=== PATIENT | female | born 2000 | race Caucasian/White ===

== ENCOUNTER 2019-06-08 16:19 | Inpatient (IN) | payer MEDICAID ==
[~2019-06-08] VITALS: Ht 165.1 cm; Wt 37.7 kg
[2019-06-08 17:45] VITALS: BP 93/55
--- NOTE | 2019-06-08 17:55 | NUR ---
Pt is a direct admit to Dr. Sinclair, pt wheeled in by Adm. Staff accompanied by her Stepfather. Given pt a gown, swabbed her nose,took vitals and made her comfortable. Dr. Spring was paged and will come in to assessed pt.
[2019-06-08] MEDS ORDERED: metoclopramide 5 mg/ml inj IV PRN (18:10)
[2019-06-08] MEDS ORDERED: acetaminophen 325mg tablet PO PRN (18:10)
[2019-06-08] MEDS ORDERED: mag hydrox/Alum hydrox/simeth 30ml oral suspension PO PRN (18:10)
[2019-06-08] MEDS ORDERED: ondansetron/PF 4mg/2ml inj IV PRN (18:10)
[2019-06-08] MEDS ORDERED: bisacodyl 10mg suppository rectal RC PRN (18:10)
[2019-06-08] MEDS ORDERED: diphenhydrAMINE 25mg capsule PO PRN (18:10)
[2019-06-08] MEDS ORDERED: magnesium 4gm in 100ml NS 100 ML IV PRN (18:10)
[2019-06-08] MEDS ORDERED: magnesium 2GM in 50ml NS 50 ML IV PRN (18:10)
[2019-06-08] MEDS ORDERED: magnesium Cl slow-release 64mg tablet PO PRN (18:10)
[2019-06-08] MEDS ORDERED: magnesium hydroxide 30ml (MOM) UD suspension PO PRN (18:10)
[2019-06-08] MEDS ORDERED: diphenhydrAMINE 50 mg/ml inj IV PRN (18:10)
--- NOTE | 2019-06-08 18:35 | NUR ---
Problems reprioritized. Patient report given, questions answered & plan of care reviewed with Yajaira MAGDALENO. Not much information shared with Yajaira since I just received pt and "tucked" her in.
--- NOTE | 2019-06-08 18:40 | NUR ---
Patient in room [facility]. I have received report from RASTA Jacinto and had the opportunity to ask questions and assume patient care.
[2019-06-08 19:24] LABS: ALANINE AMINOTRANSFERASE 14 U/L (12-78); ALBUMIN 4.1 G/DL (3.4-5.0); ALBUMIN/GLOBULIN RATIO 1.5 (1.1-1.5); ALKALINE PHOSPHATASE 51 IU/L (20-180); ANION GAP 7 (8-16); ASPARTATE AMINO TRANSFERASE 23 U/L (10-37); BILIRUBIN,TOTAL 0.9 MG/DL (0.1-1.0); BLOOD UREA NITROGEN 17 MG/DL (7-18); CALCIUM 8.9 MG/DL (8.5-10.1); CHLORIDE 95 MMOL/L (99-107); GLUCOSE 108 MG/DL (70-104); PHOSPHORUS 3.4 MG/DL (2.3-4.5); SODIUM 139 MMOL/L (135-145); TOTAL CARBON DIOXIDE 37.3 MMOL/L (24-32); TOTAL PROTEIN 6.9 G/DL (6.4-8.2); eGFR 71 ML/MIN
[2019-06-08 19:33] LABS: POTASSIUM 1.8 MMOL/L (3.5-5.1)
[2019-06-08 19:38] LABS: BASOPHILS # (AUTO) 0.1 X10'3 (0-0.2); BASOPHILS % (AUTO) 0.9 % (0-1); EOSINOPHILS % (AUTO) 0.5 % (0-6); HEMATOCRIT 29.6 % (35.0-45.0); HEMOGLOBIN 11.1 g/dl (12.0-16.0); LYMPHOCYTES # (AUTO) 1.4 X10'3 (1.1-4.8); LYMPHOCYTES % (AUTO) 24.5 % (21-51); MEAN CORPUSCULAR HGB CONC 37.6 g/dL (33.0-36.5); MEAN CORPUSCULAR VOLUME 87.8 FL (78-98); MEAN PLATELET VOLUME 7.6 FL (7.4-10.4); MONOCYTES # (AUTO) 0.6 X10'3 (0-0.9); MONOCYTES % (AUTO) 10.1 % (2-12); NEUTROPHILS # (AUTO) 3.6 X10'3 (1.8-7.7); PLATELET COUNT 243 X10'3 (140-440); RED BLOOD COUNT 3.37 X10'6 (4.20-5.60); RED CELL DISTRIBUTION WIDTH 14.5 % (11.5-14.5); WHITE BLOOD COUNT 5.6 X10'3 (4.5-11.0)
[2019-06-08] MEDS: potassium Cl 20 mEq SR tablet PO PRN ×2 (19:38→23:15)
[2019-06-08] MEDS: docusate sod 100mg capsule PO SCH (19:38)
[2019-06-08] MEDS: ringers solution, lacted 1,000 ML IV SCH (19:48)
[2019-06-08 20:00] VITALS: BP 86/52
[2019-06-08 20:19] LABS: CLARITY,URINE CLEAR (Clear); COLOR,URINE YELLOW (Yellow); GLUCOSE, URINE NEGATIVE (Neg); KETONES,URINE NEGATIVE (Neg); LEUKOCYTE ESTERASE ,URINE NEGATIVE (Neg); NITRITES, URINE NEGATIVE (Neg); OCCULT BLOOD,URINE TRACE-LYSED (Neg); PROTEIN,URINE NEGATIVE (Neg)
[2019-06-08 20:27] LABS: UA COLLECTION TYPE CLN CATCH MIDSTREAM
[2019-06-08 20:28] LABS: RBC,URINE 0-2 /HPF (0-2)
[2019-06-08 20:29] LABS: BACTERIA,URINE FEW /HPF (Neg); MUCUS STRANDS FEW /LPF (Neg); SQUAMOUS EPITHELIAL CELL,UR NONE SEEN /LPF (FEW)
[2019-06-08] MEDS ORDERED: temazepam 15mg capsule PO PRN (21:00)
[2019-06-08] MEDS ORDERED: NO HOME MEDS MC (21:52)
[2019-06-08] MEDS: potassium CL 10mEq/100ml bag 100 ML IV PRN (22:11)
[2019-06-09] VITALS: BP 109/61
[2019-06-09] MEDS: potassium CL 10mEq/100ml bag 100 ML IV PRN ×11 (01:36→23:23)
[2019-06-09] MEDS: potassium Cl 20 mEq SR tablet PO PRN (04:37)
[2019-06-09 05:03] LABS: POTASSIUM 2.2 MMOL/L (3.5-5.1)
--- NOTE | 2019-06-09 06:20 | NUR ---
Problems reprioritized. Patient report given, questions answered & plan of care reviewed with RASTA Quiros.
--- NOTE | 2019-06-09 06:41 | NUR ---
Patient in room [facility]. I have received report from RASTA Gates and had the opportunity to ask questions and assume patient care.
[2019-06-09] MEDS: docusate sod 100mg capsule PO SCH ×2 (07:10→19:33)
[2019-06-09 07:20] VITALS: BP 87/39
[2019-06-09] MEDS: K and/or MAG REPLACEMENT MC SCH (08:00)
[2019-06-09] MEDS: ringers solution, lacted 1,000 ML IV SCH (09:16)
[2019-06-09 10:22] LABS: ALANINE AMINOTRANSFERASE 15 U/L (12-78); ALBUMIN 3.8 G/DL (3.4-5.0); ALBUMIN/GLOBULIN RATIO 1.4 (1.1-1.5); ALKALINE PHOSPHATASE 42 IU/L (20-180); ANION GAP 3 (8-16); ASPARTATE AMINO TRANSFERASE 24 U/L (10-37); BILIRUBIN,TOTAL 0.7 MG/DL (0.1-1.0); BLOOD UREA NITROGEN 10 MG/DL (7-18); BUN/CREATININE RATIO 10.3 (6.6-38.0); CALCIUM 8.9 MG/DL (8.5-10.1); CHLORIDE 101 MMOL/L (99-107); CREATININE 0.97 MG/DL (0.40-0.90); GLUCOSE 62 MG/DL (70-104); SODIUM 142 MMOL/L (135-145); TOTAL CARBON DIOXIDE 38.3 MMOL/L (24-32); TOTAL PROTEIN 6.5 G/DL (6.4-8.2); eGFR 73 ML/MIN
[2019-06-09 10:25] LABS: POTASSIUM 2.5 MMOL/L (3.5-5.1)
[2019-06-09 11:12] VITALS: BP 92/46
--- NOTE | 2019-06-09 15:22 | NUR ---
Nutrition consult re: "anorexia/bulimia". Pt admit with intractable N/V. Pt with hx anorexia/bulimia, current BMI is 13.8 with documented wt of 83 lbs however is pt stated. Only documented wt hx is 103 lb taken 05/08/2017 using a standing scale. Diet has been advanced to regular from clear liquid, documented with 100% PO intake meeting nutrient needs. Pt with no edema or decrease in muscle strength. Pt seen at bedside with visible fat and muscle wasting meeting criteria for severe malnutrition, notified. Malnutrition education with ONS recommendations not appropriate given hx. Pt denies food allergies and was provided with written alternative write in menu to provide additional food options. Pt with food requests for dinner that were d/w dietary. Pt reports previous BM 05/25 however reports small BM today. Pt receiving routine Colace and MoM PRN last given today. Pt denies feeling of constipation at this time. RD contact information provided and pt encouraged to reach out if needed. Will continue to follow. Recommendations: 1) Continue regular diet 2) Routine bowel care 3) Wt per rx Addendum: 06/09/19 at [address] Amended: Links added.
[2019-06-09 18:00] VITALS: BP 91/54
--- NOTE | 2019-06-09 18:33 | NUR ---
Problems reprioritized. Patient report given, questions answered & plan of care reviewed with RASTA Srivastava.
--- NOTE | 2019-06-09 18:42 | NUR ---
Received report from Chula MAGDALENO pt is awake and alert in no apparent distress, call light and items of freq use within reach.
[2019-06-10 00:13] VITALS: BP 84/56
[2019-06-10] MEDS: potassium CL 10mEq/100ml bag 100 ML IV PRN (01:19)
[2019-06-10 04:04] LABS: ALANINE AMINOTRANSFERASE 14 U/L (12-78); ALBUMIN 3.3 G/DL (3.4-5.0); ALBUMIN/GLOBULIN RATIO 1.5 (1.1-1.5); ALKALINE PHOSPHATASE 38 IU/L (20-180); ANION GAP 4 (8-16); ASPARTATE AMINO TRANSFERASE 22 U/L (10-37); BILIRUBIN,TOTAL 0.4 MG/DL (0.1-1.0); BLOOD UREA NITROGEN 9 MG/DL (7-18); BUN/CREATININE RATIO 10.6 (6.6-38.0); CALCIUM 8.3 MG/DL (8.5-10.1); CHLORIDE 106 MMOL/L (99-107); CREATININE 0.85 MG/DL (0.40-0.90); GLUCOSE 84 MG/DL (70-104); PHOSPHORUS 2.4 MG/DL (2.3-4.5); POTASSIUM 3.3 MMOL/L (3.5-5.1); SODIUM 143 MMOL/L (135-145); TOTAL CARBON DIOXIDE 32.9 MMOL/L (24-32); TOTAL PROTEIN 5.5 G/DL (6.4-8.2); eGFR 85 ML/MIN
--- NOTE | 2019-06-10 06:20 | NUR ---
Problems reprioritized. Patient report given, questions answered & plan of care reviewed with wiley Goldberg.
--- NOTE | 2019-06-10 06:24 | NUR ---
Patient in room [facility]. I have received report from RASTA Srivastava and had the opportunity to ask questions and assume patient care.
[2019-06-10 06:56] VITALS: BP 89/41
[2019-06-10] MEDS: K and/or MAG REPLACEMENT MC SCH (07:11)
[2019-06-10] MEDS: docusate sod 100mg capsule PO SCH ×2 (07:48→21:34)
[2019-06-10] MEDS: potassium Cl 20 mEq SR tablet PO PRN ×3 (07:48→16:16)
[2019-06-10 10:37] LABS: BASOPHILS # (AUTO) 0.1 X10'3 (0-0.2); BASOPHILS % (AUTO) 1.2 % (0-1); EOSINOPHILS # (AUTO) 0.1 X10'3 (0-0.9); EOSINOPHILS % (AUTO) 1.1 % (0-6); HEMATOCRIT 28.8 % (35.0-45.0); HEMOGLOBIN 10.6 g/dl (12.0-16.0); LYMPHOCYTES # (AUTO) 1.2 X10'3 (1.1-4.8); LYMPHOCYTES % (AUTO) 26.4 % (21-51); MEAN CORPUSCULAR HEMOGLOBIN 33.1 PG (27.0-31.0); MEAN CORPUSCULAR HGB CONC 36.7 g/dL (33.0-36.5); MEAN CORPUSCULAR VOLUME 90.2 FL (78-98); MEAN PLATELET VOLUME 7.8 FL (7.4-10.4); MONOCYTES # (AUTO) 0.4 X10'3 (0-0.9); MONOCYTES % (AUTO) 9.2 % (2-12); NEUTROPHILS # (AUTO) 2.9 X10'3 (1.8-7.7); NEUTROPHILS % (AUTO) 62.1 % (42-75); PLATELET COUNT 204 X10'3 (140-440); RED BLOOD COUNT 3.19 X10'6 (4.20-5.60); RED CELL DISTRIBUTION WIDTH 14.8 % (11.5-14.5); WHITE BLOOD COUNT 4.6 X10'3 (4.5-11.0)
[2019-06-10 11:00] VITALS: BP 91/47
[2019-06-10 11:32] LABS: PLATELET ESTIMATE NORMAL
[2019-06-10 11:33] LABS: SPHEROCYTES 1+
--- NOTE | 2019-06-10 14:00 | NUR ---
Spoke with MD about this patient and MD expressed plan to send patient home if she can not get a psych eval done here today. states that the patient can use resources outpatient to try and find a place to go seek in patient psychiatric care. DATA CODER OPERATOR from the [facility] called to talk to the patient and for an update. Per patient it was okay to discuss her case with the DATA CODER OPERATOR. Oscar Jin, DATA CODER OPERATOR from the [facility] expressed concern for the patient and was not sure that discharge was the best option for her. She stated that the patients mother also struggles with anorexia and that environment is not the healthiest for the patient to return to. Oscar Jin, MADAN further stated that the patient really wants help and was hoping that we could assist in helping to find her some inpatient care. Primary nurse took down the phone number for the DATA CODER OPERATOR. This was discussed with Dr. Smalls who stated that the patient is medically stable and should really be discharged. Dr. Smalls stated that this patient should be able to find care after discharge as far as inpatient psych care goes. Patient is really anxious about being discharge. Behavioral Health has been called twice now trying to see if they have someone that can eval her today, they said there is someone and that they will hopefully be here soon. Dr. Smalls notified.
--- NOTE | 2019-06-10 16:59 | NUR ---
Patient had psych eval after, primary nurse spoke with Dr. Smalls who stated that she wanted to discharge the patient. This was discussed with the patient, patient stated that she feels very unsafe going back home. Primary nurse reached out to the mental health case manager to see if there were any other options for this patient. Renetta in case management stated that she would really like the opportunity to review the patients chart tomorrow. Primary nurse paged Dr. Smalls and asked if the patient could stay one more day so that we can have an opportunity to work with the mental health case manager. Dr. Smalls agreed and asked for the nurse to prepare the patient for probable discharge tomorrow.
--- NOTE | 2019-06-10 18:12 | NUR ---
Problems reprioritized. Patient report given, questions answered & plan of care reviewed with RASTA Cisneros.
--- NOTE | 2019-06-10 19:00 | NUR ---
Patient in room [facility]. I have received report from Coco MAGDALENO and had the opportunity to ask questions and assume patient care. Addendum: 06/11/19 at 0513 by Amelia Lozano RN Amended: Links added.
[2019-06-10] MEDS ORDERED: mirtazapine 15mg tablet PO SCH (21:00)
[2019-06-11] VITALS: BP 90/50
--- NOTE | 2019-06-11 06:00 | NUR ---
Problems reprioritized. Patient report given, questions answered & plan of care reviewed with Coco MAGDALENO. Addendum: 06/11/19 at 0643 by Amelia Lozano RN Amended: Links added.
[2019-06-11 06:25] LABS: ALANINE AMINOTRANSFERASE 15 U/L (12-78); ALBUMIN 3.2 G/DL (3.4-5.0); ALBUMIN/GLOBULIN RATIO 1.5 (1.1-1.5); ALKALINE PHOSPHATASE 36 IU/L (20-180); ANION GAP 7 (8-16); ASPARTATE AMINO TRANSFERASE 20 U/L (10-37); BILIRUBIN,TOTAL 0.4 MG/DL (0.1-1.0); BLOOD UREA NITROGEN 6 MG/DL (7-18); BUN/CREATININE RATIO 7.1 (6.6-38.0); CALCIUM 8.2 MG/DL (8.5-10.1); CHLORIDE 109 MMOL/L (99-107); CREATININE 0.84 MG/DL (0.40-0.90); GLUCOSE 79 MG/DL (70-104); MAGNESIUM 1.9 MG/DL (1.5-2.4); PHOSPHORUS 2.6 MG/DL (2.3-4.5); POTASSIUM 3.2 MMOL/L (3.5-5.1); SODIUM 146 MMOL/L (135-145); TOTAL PROTEIN 5.4 G/DL (6.4-8.2); eGFR 86 ML/MIN
--- NOTE | 2019-06-11 06:25 | NUR ---
Patient in room [facility]. I have received report from RASTA Cisneros and had the opportunity to ask questions and assume patient care.
[2019-06-11 07:13] VITALS: BP 83/38
[2019-06-11] MEDS: K and/or MAG REPLACEMENT MC SCH (07:27)
[2019-06-11] MEDS: potassium Cl 20 mEq SR tablet PO PRN (07:29)
[2019-06-11] MEDS: docusate sod 100mg capsule PO SCH (07:29)
[2019-06-11] MEDS ORDERED: ESCITALOPRAM OXALATE 5 MG TABLET PO SCH (08:00)
[2019-06-11] MEDS ORDERED: MIRT15TA8 PO (10:15)
[2019-06-11] MEDS ORDERED: ESCI5TAB PO (10:15)
[2019-06-11] MEDS ORDERED: POTA20TA10 PO (10:16)
[2019-06-11 11:00] VITALS: BP 96/55
--- NOTE | 2019-06-11 13:15 | NUR ---
Patient discharged home and taken from unit via wheelchair with x1 staff. Patient alert, oriented, and in no apparent distress at time of discharge. Patient was able to meet with Beater Room Helper from Behavioral Health and our [employer] and was able to get some resources to find counseling. Patient was encouraged to follow up with PCP as well as the mental health workers that she has seen in the past. Patient was sent with new medication prescription to take into the [facility] tomorrow. Patient PIV removed with cannula intact and and tele monitor removed with cannula intact. Patient was given discharge instructions and there was discussed with the patient. We also discussed coping mechanisms that can work for her and some stress relieving activities to try. Patient stated that she is going to try. Patient was also encouraged to seek help immediately if she starts having thoughts of suicide. patient stated an understanding of all of the instructions.
== END 2019-06-11 13:15 | disposition home or self-care (01) | DRG 425 ==
LOC: SUR 3N 17:23
PROVIDERS: ADMIT Family Medicine; ATTEND Internal Medicine
DX: E87.6 Hypokalemia (principal); E46 Unspecified protein-calorie malnutrition; F50.00 Anorexia nervosa, unspecified; K59.00 Constipation, unspecified; F41.9 Anxiety disorder, unspecified; F33.1 Major depressive disorder, recurrent, moderate; F50.2 Bulimia nervosa; Z79.899 Other long term (current) drug therapy; Z68.1 Body mass index [BMI] 19.9 or less, adult
CPT/HCPCS: 36415; 80053; 81001; 83735; 84100; 84132; 84443; 85025; 87081; G0378; J3480; J7120

== ENCOUNTER 2019-06-29 11:40 | Inpatient (IN) | payer MEDICAID ==
[~2019-06-29] VITALS: Ht 165.1 cm; Wt 38.7 kg
[~2019-06-29 11:40] MED LIST: ESCI5TAB PO; MIRT15TA8 PO; POTA20TA10 PO
--- NOTE | 2019-06-29 12:15 | NUR ---
Patient's father arrived and at bedside. Patient sitting up in bed talking on phone.
[2019-06-29] MEDS ORDERED: normal saline 1000ML IV soln IVB ONE (12:30)
[2019-06-29 13:07] LABS: BASOPHILS % (AUTO) 0.9 % (0-1); EOSINOPHILS % (AUTO) 0.6 % (0-6); HEMATOCRIT 28.4 % (35.0-45.0); HEMOGLOBIN 10.4 g/dl (12.0-16.0); LYMPHOCYTES # (AUTO) 1.1 X10'3 (1.1-4.8); LYMPHOCYTES % (AUTO) 20.1 % (21-51); MEAN CORPUSCULAR HEMOGLOBIN 33.1 PG (27.0-31.0); MEAN CORPUSCULAR HGB CONC 36.7 g/dL (33.0-36.5); MEAN CORPUSCULAR VOLUME 90.3 FL (78-98); MEAN PLATELET VOLUME 6.9 FL (7.4-10.4); MONOCYTES # (AUTO) 0.5 X10'3 (0-0.9); NEUTROPHILS # (AUTO) 3.8 X10'3 (1.8-7.7); NEUTROPHILS % (AUTO) 69.4 % (42-75); PLATELET COUNT 204 X10'3 (140-440); RED BLOOD COUNT 3.15 X10'6 (4.20-5.60); RED CELL DISTRIBUTION WIDTH 13.7 % (11.5-14.5); WHITE BLOOD COUNT 5.4 X10'3 (4.5-11.0)
[2019-06-29 13:30] LABS: ALANINE AMINOTRANSFERASE 13 U/L (12-78); ALBUMIN 3.8 G/DL (3.4-5.0); ALBUMIN/GLOBULIN RATIO 1.4 (1.1-1.5); ALKALINE PHOSPHATASE 50 IU/L (20-180); ANION GAP 7 (8-16); ASPARTATE AMINO TRANSFERASE 22 U/L (10-37); BLOOD UREA NITROGEN 16 MG/DL (7-18); BUN/CREATININE RATIO 16.3 (6.6-38.0); CALCIUM 8.5 MG/DL (8.5-10.1); CHLORIDE 103 MMOL/L (99-107); CREATININE 0.98 MG/DL (0.40-0.90); GLUCOSE 117 MG/DL (70-104); LIPASE 164 U/L (73-393); MAGNESIUM 1.9 MG/DL (1.5-2.4); PHOSPHORUS 2.5 MG/DL (2.3-4.5); SODIUM 143 MMOL/L (135-145); TOTAL CARBON DIOXIDE 33.5 MMOL/L (24-32); TOTAL PROTEIN 6.6 G/DL (6.4-8.2); eGFR 72 ML/MIN
[2019-06-29 13:32] LABS: POTASSIUM 2.4 MMOL/L (3.5-5.1)
--- NOTE | 2019-06-29 13:34 | NUR ---
Patient resting in bed with lights dimmed. Father at bedside. Patient A&OX4. Patient drank juice box x 1. Attempting to eat jello and drink another juice box. Patient on monitor technician.
[2019-06-29 13:43] LABS: ETHANOL < 0.010 GM/DL (0.0-0.010)
[2019-06-29] MEDS ORDERED: potassium Cl 20 mEq SR tablet PO STA ×2 (13:43→13:54)
--- NOTE | 2019-06-29 14:07 | NUR ---
verified potassium PO order of 80mEq with Dr. Nascimento and pharmacy in ED.
[2019-06-29] MEDS: potassium 20mEq/D5LR 1,000 ML IV SCH ×2 (14:21→23:00)
[2019-06-29] MEDS ORDERED: diphenhydrAMINE 25mg capsule PO PRN (14:30)
[2019-06-29] MEDS ORDERED: potassium Cl 20 mEq SR tablet PO PRN (14:30)
[2019-06-29] MEDS ORDERED: metoclopramide 5 mg/ml inj IV PRN (14:30)
[2019-06-29] MEDS ORDERED: acetaminophen 650mg rectal suppository RC PRN (14:30)
[2019-06-29] MEDS: K and/or MAG REPLACEMENT MC SCH (14:30)
[2019-06-29] MEDS ORDERED: magnesium hydroxide 30ml (MOM) UD suspension PO PRN (14:30)
[2019-06-29] MEDS: dextrose 5%-normal saline 1,000 ML IV SCH ×2 (14:30→22:30)
[2019-06-29] MEDS ORDERED: magnesium 2GM in 50ml NS 50 ML IV PRN (14:30)
[2019-06-29] MEDS ORDERED: bisacodyl 10mg suppository rectal RC PRN (14:30)
[2019-06-29] MEDS ORDERED: magnesium Cl slow-release 64mg tablet PO PRN (14:30)
[2019-06-29] MEDS ORDERED: mag hydrox/Alum hydrox/simeth 30ml oral suspension PO PRN (14:30)
[2019-06-29] MEDS ORDERED: magnesium 4gm in 100ml NS 100 ML IV PRN (14:30)
[2019-06-29] MEDS ORDERED: acetaminophen 325mg tablet PO PRN ×2 (14:30)
[2019-06-29] MEDS ORDERED: ondansetron/PF 4mg/2ml inj IV PRN (14:30)
[2019-06-29] MEDS ORDERED: potassium CL 10mEq/100ml bag 100 ML IV PRN ×2 (14:30)
[2019-06-29 15:01] LABS: HEMOGLOBIN A1C 4.3 % (4.5-6.2)
[2019-06-29] MEDS ORDERED: MIRT15TA PO (15:08)
[2019-06-29] MEDS ORDERED: POTA20TA19 PO (15:08)
[2019-06-29] MEDS ORDERED: ESCI5TAB12 PO (15:08)
--- NOTE | 2019-06-29 15:13 | NUR ---
Patient drinking juice box #3.
--- NOTE | 2019-06-29 15:55 | NUR ---
Patient ambulated to restroom with steady gait. Urine sample collected and sent to lab.
[2019-06-29 16:06] LABS: URINE HCG NEGATIVE (NEG)
[2019-06-29 16:13] LABS: CLARITY,URINE CLEAR (Clear); COLOR,URINE YELLOW (Yellow); GLUCOSE, URINE 250 mg/dl (Neg); KETONES,URINE NEGATIVE (Neg); LEUKOCYTE ESTERASE ,URINE TRACE (Neg); NITRITES, URINE NEGATIVE (Neg); OCCULT BLOOD,URINE NEGATIVE (Neg); PROTEIN,URINE NEGATIVE (Neg); URINE AMPHETAMINE SCREEN NEGATIVE (Neg); URINE BARBITUATE SCREEN NEGATIVE (Neg); URINE BENZODIAZEPINES SCREEN NEGATIVE (Neg); URINE CANNABINOID SCREEN NEGATIVE (Neg); URINE COCAINE SCREEN NEGATIVE (Neg); URINE METHADONE SCREEN NEGATIVE (Neg); URINE OPIATE SCREEN NEGATIVE (Neg); URINE PHENCYCLIDINE SCREEN NEGATIVE (Neg); UROBILINOGEN,URINE 0.2 E.U/dL (0.2-1.0)
[2019-06-29 16:15] LABS: UA COLLECTION TYPE CLN CATCH MIDSTREAM
--- NOTE | 2019-06-29 16:20 | NUR ---
Patient in room ED 15. I have received report from Rolf MAGDALENO and had the opportunity to ask questions and assume patient care.
[2019-06-29 16:24] LABS: MUCUS STRANDS MODERATE /LPF (Neg); SQUAMOUS EPITHELIAL CELL,UR MODERATE /LPF (FEW)
[2019-06-29 16:25] LABS: BACTERIA,URINE 2+ /HPF (Neg); RBC,URINE 0-2 /HPF (0-2); TRANSITIONAL EPI CELLS,URINE FEW /HPF; WBC,URINE 0-4 /HPF (0-4)
[2019-06-29 16:31] VITALS: BP 93/36
--- NOTE | 2019-06-29 17:48 | NUR ---
B/P 93/[address] Pelayo pagezuhair, fluids increased, ac/hs accuchecks ordered. will continue to monitor
[2019-06-29] MEDS: potassium Cl 20 mEq SR tablet PO PRN ×2 (17:53→22:59)
[2019-06-29] MEDS ORDERED: FLU VACC QS2019-20 36MOS UP/PF 60 MCG/0.5 ML SYRINGE IMVAC ONE (17:55)
[2019-06-29 18:00] VITALS: BP 95/64
--- NOTE | 2019-06-29 18:11 | NUR ---
Problems reprioritized. Patient report given, questions answered & plan of care reviewed with MARKY MAGDALENO.
--- NOTE | 2019-06-29 18:32 | NUR ---
Patient in room [facility]. I have received report from RASTA Schroeder and had the opportunity to ask questions and assume patient care. Addendum: 06/29/19 at 1833 by Martha Bryant RN Amended: Links added.
[2019-06-29] MEDS: heparin, porcine 5000 units/ml vial SQ SCH (20:44)
[2019-06-29] MEDS: mirtazapine 15mg tablet PO SCH (20:56)
[2019-06-30] VITALS: BP 97/68
[2019-06-30 05:31] LABS: ALANINE AMINOTRANSFERASE 14 U/L (12-78); ALBUMIN 3.1 G/DL (3.4-5.0); ALBUMIN/GLOBULIN RATIO 1.3 (1.1-1.5); ALKALINE PHOSPHATASE 41 IU/L (20-180); ANION GAP 2 (8-16); ASPARTATE AMINO TRANSFERASE 20 U/L (10-37); BILIRUBIN,TOTAL 0.6 MG/DL (0.1-1.0); BLOOD UREA NITROGEN 9 MG/DL (7-18); BUN/CREATININE RATIO 10.6 (6.6-38.0); CALCIUM 8.5 MG/DL (8.5-10.1); CHLORIDE 110 MMOL/L (99-107); CREATININE 0.85 MG/DL (0.40-0.90); GLUCOSE 124 MG/DL (70-104); MAGNESIUM 1.7 MG/DL (1.5-2.4); PHOSPHORUS 1.7 MG/DL (2.3-4.5); POTASSIUM 4.6 MMOL/L (3.5-5.1); SODIUM 143 MMOL/L (135-145); TOTAL CARBON DIOXIDE 30.8 MMOL/L (24-32); TOTAL PROTEIN 5.5 G/DL (6.4-8.2); eGFR 85 ML/MIN
[2019-06-30 06:13] LABS: BASOPHILS % (AUTO) 0.9 % (0-1); EOSINOPHILS # (AUTO) 0.1 X10'3 (0-0.9); EOSINOPHILS % (AUTO) 1.7 % (0-6); HEMATOCRIT 26.3 % (35.0-45.0); HEMOGLOBIN 9.7 g/dl (12.0-16.0); LYMPHOCYTES # (AUTO) 1.8 X10'3 (1.1-4.8); LYMPHOCYTES % (AUTO) 36.9 % (21-51); MEAN CORPUSCULAR HEMOGLOBIN 33.2 PG (27.0-31.0); MEAN CORPUSCULAR HGB CONC 36.8 g/dL (33.0-36.5); MEAN CORPUSCULAR VOLUME 90.3 FL (78-98); MEAN PLATELET VOLUME 7.6 FL (7.4-10.4); MONOCYTES # (AUTO) 0.4 X10'3 (0-0.9); MONOCYTES % (AUTO) 8.2 % (2-12); NEUTROPHILS # (AUTO) 2.5 X10'3 (1.8-7.7); NEUTROPHILS % (AUTO) 52.3 % (42-75); PLATELET COUNT 188 X10'3 (140-440); RED BLOOD COUNT 2.91 X10'6 (4.20-5.60); RED CELL DISTRIBUTION WIDTH 13.9 % (11.5-14.5); WHITE BLOOD COUNT 4.9 X10'3 (4.5-11.0)
[2019-06-30] MEDS: dextrose 5%-normal saline 1,000 ML IV SCH (06:30)
--- NOTE | 2019-06-30 06:34 | NUR ---
Problems reprioritized. Patient report given, questions answered & plan of care reviewed with RASTA Lawrence's. Addendum: 06/30/19 at 0634 by Martha Bryant RN Amended: Links added.
[2019-06-30 06:39] LABS: PLATELET ESTIMATE NORMAL; POLYCHROMASIA FEW
[2019-06-30 06:40] LABS: SPHEROCYTES 1+
[2019-06-30] MEDS: potassium 20mEq/D5LR 1,000 ML IV SCH ×3 (06:49→22:53)
[2019-06-30 07:01] VITALS: BP 92/45
[2019-06-30] MEDS: K and/or MAG REPLACEMENT MC SCH (08:00)
[2019-06-30] MEDS: heparin, porcine 5000 units/ml vial SQ SCH ×2 (09:06→20:15)
[2019-06-30] MEDS: ESCITALOPRAM OXALATE 5 MG TABLET PO SCH (09:07)
[2019-06-30 11:00] VITALS: BP 96/48
--- NOTE | 2019-06-30 11:24 | NUR ---
Per Dr Pelayo please call Behavioral health and see if Dr Hernandez is going to come and evaluate patient. Called Behavioral health spoke to Josselyn she will let Lia the PA know.
--- NOTE | 2019-06-30 11:45 | NUR ---
Brenda MAGDALENO, spoke with Gretchen the dietitian and she will come up to evaluate the patient, and she suggested enlive with meals. Order placed.
[2019-06-30] MEDS: lactose-reduced food (Ensure Enlive) - 237ml bottle PO SCH ×2 (13:00→19:00)
--- NOTE | 2019-06-30 14:00 | NUR ---
Received a call from patients Nurse practitioner Jenniffer Jin from [facility] phone numbercell) [phone]. Jenniffer is very concerned about patient going back home she states " patients home life is toxic, her mother has severe anorexia and when the patient goes home her mother and her argue and patient becomes very depressed." Also, Jenniffer is very worried that the patients condition is going to deteriorate and she will . Jenniffer states they are trying to get the patient into [facility] eating disorder clinic in [place]. Patients insurance [facility] has approved Medical portion and they have submitted to the [facility] to cover the psychiatric portion but have not gotten any feedback yet. Also, the patient is so there is a possibility they will pay the psychiatric portion, Sandy Carranza from [facility] is working on approval . Jenniffer would like to see what help we can give for the patient or if patient could be placed in our patient Behavioral Health facility. I have a call out to Dr Pelayo to inform him of her concerns. I also have a social service consult in and Lora states she would be by this afternoon.
--- NOTE | 2019-06-30 15:08 | NUR ---
Nutrition consult re: "anorexia/bulimia". Pt recently admitted for intractable N/V with hx anorexia nervosa/bulimia and seen by MUMTAZ 06/09/19. Only scaled wt hx is 103 lbs taken 05/08/2017 using a standing scale, pt currently 79 lbs using standing scale. This is non-severe wt loss of 28% in two years however pt currently 63% IBW and likely with periods of wt loss with poor nutrient intake/absorption r/t eating disorder. Pt with visible fat and muscle wasting meeting criteria for malnutrition, MD notified. Pt would benefit from an outpatient eating disorder facility given positive hx of anorexia nervosa/bulimia. Pt on a regular diet documented to have refused the first meal however with 75-100% PO intake the following meals meeting nutrient needs, no documentation of purging during admission. RN ordered ONS per MD, RD recommended Ensure Enlive to provide optimal kcal and protein. Pt seen at bedside requests vanilla flavor, d/w dietary. Pt with no food preferences or requests at this time. Per Dietary pt is filling out menu appropriately. Pt provided with alternative write in menu to provide additional food options and RD contact information. LB 06/30. Will continue to follow. Recommendations: 1) Continue regular diet 2) Vanilla Ensure Enlive TID per MD 3) [place] food preferences; Encourage PO intake 4) Routine bowel care 5) Wt per rx Addendum: 06/30/19 at [address] Amended: Links added.
--- NOTE | 2019-06-30 15:53 | NUR ---
Spoke to Josselyn with behavioral health again she stated that Tian Meza has seen the patient in the past and he will come and see her in a bit.
--- NOTE | 2019-06-30 17:31 | NUR ---
Tian Meza evaluating patient Dr Pelayo aware. I advised Dr Pelayo that Quilting Machine Operator has left for the day. Dr Pelayo states patient is medically clear but that patient is a danger to self and that she should be evaluated for 5150. Tian Meza aware and stated that we can call downstairs to the ER and speak w/ Viet with [facility]. Per Viet with [facility] patient would need to have a 1799 placed on her and then we would have to fax over medical records. Spoke to Lynn polanco/ [facility] office and we need the fax to include: labs, the 1799, nursing notes, progress notes, face sheet, medical clearance, H&P, tox screen and medical diagnosis. Fax the above to [facility] office for [facility] at [phone] fax, office number is [phone].
[2019-06-30 18:00] VITALS: BP 104/64
--- NOTE | 2019-06-30 18:26 | NUR ---
Problems reprioritized. Patient report given, questions answered & plan of care reviewed with ZULEYMA MAGDALENO .
--- NOTE | 2019-06-30 18:27 | NUR ---
Patient in room [facility] 347. I have received report from RASTA Lawrence's and had the opportunity to ask questions and assume patient care. Addendum: 06/30/19 at 1827 by Martha Bryant RN Amended: Links added.
[2019-06-30] MEDS: mirtazapine 15mg tablet PO SCH (20:15)
[2019-06-30] MEDS ORDERED: dextrose 50%-water 50ml dispensing syringe IV PRN (22:20)
[2019-06-30] MEDS ORDERED: glucagon, human recombinant 1mg kit SUBCUT PRN (22:20)
[2019-06-30] MEDS: dextrose ORAL solution 15 GM/59 ML bottle PO PRN (22:53)
[2019-06-30] MEDS: Melatonin 3mg tablet PO PRN (22:53)
--- NOTE | 2019-06-30 23:21 | NUR ---
patient had a blood sugar of 62mg/dl, rechecked after an hour and it was 61mg/dl, asked patient about making herself throw up and she admitted that shes been doing it and could not help it. patient admitted that food makes her uncomfortable so she has to throw up. Informed patient and educate about getting her blood glucose up and to keep food down. Notified Dr. yuan and ordered hypoglycemia protocol, dex4 was given and will re check blood sugar. pt has a sitter order.
[2019-07-01 00:50] VITALS: BP 93/55
[2019-07-01 05:39] LABS: ALANINE AMINOTRANSFERASE 46 U/L (12-78); ALBUMIN 2.9 G/DL (3.4-5.0); ALBUMIN/GLOBULIN RATIO 1.3 (1.1-1.5); ANION GAP 4 (8-16); ASPARTATE AMINO TRANSFERASE 54 U/L (10-37); BILIRUBIN,TOTAL 0.4 MG/DL (0.1-1.0); BLOOD UREA NITROGEN 3 MG/DL (7-18); BUN/CREATININE RATIO 4.1 (6.6-38.0); CALCIUM 7.9 MG/DL (8.5-10.1); CHLORIDE 110 MMOL/L (99-107); CREATININE 0.74 MG/DL (0.40-0.90); GLUCOSE 83 MG/DL (70-104); MAGNESIUM 1.5 MG/DL (1.5-2.4); PHOSPHORUS 2.5 MG/DL (2.3-4.5); POTASSIUM 4.1 MMOL/L (3.5-5.1); SODIUM 143 MMOL/L (135-145); TOTAL CARBON DIOXIDE 28.7 MMOL/L (24-32); TOTAL PROTEIN 5.1 G/DL (6.4-8.2); eGFR > 90 ML/MIN
[2019-07-01 05:40] LABS: ALKALINE PHOSPHATASE 40 IU/L (20-180)
[2019-07-01 06:16] LABS: BASOPHILS % (AUTO) 1.3 % (0-1); EOSINOPHILS # (AUTO) 0.1 X10'3 (0-0.9); EOSINOPHILS % (AUTO) 2.4 % (0-6); HEMATOCRIT 25.3 % (35.0-45.0); HEMOGLOBIN 9.3 g/dl (12.0-16.0); LYMPHOCYTES # (AUTO) 1.8 X10'3 (1.1-4.8); LYMPHOCYTES % (AUTO) 45.9 % (21-51); MEAN CORPUSCULAR HEMOGLOBIN 33.2 PG (27.0-31.0); MEAN CORPUSCULAR HGB CONC 36.7 g/dL (33.0-36.5); MEAN CORPUSCULAR VOLUME 90.6 FL (78-98); MEAN PLATELET VOLUME 7.8 FL (7.4-10.4); MONOCYTES # (AUTO) 0.3 X10'3 (0-0.9); MONOCYTES % (AUTO) 8.2 % (2-12); NEUTROPHILS # (AUTO) 1.6 X10'3 (1.8-7.7); NEUTROPHILS % (AUTO) 42.2 % (42-75); PLATELET COUNT 189 X10'3 (140-440); RED BLOOD COUNT 2.79 X10'6 (4.20-5.60); RED CELL DISTRIBUTION WIDTH 13.9 % (11.5-14.5); WHITE BLOOD COUNT 3.9 X10'3 (4.5-11.0)
--- NOTE | 2019-07-01 06:29 | NUR ---
Patient in room [facility] 347. I have received report from Charline Blum RN and had the opportunity to ask questions and assume patient care.
--- NOTE | 2019-07-01 06:30 | NUR ---
Problems reprioritized. Patient report given, questions answered & plan of care reviewed with RASTA Richter.
[2019-07-01] MEDS: potassium 20mEq/D5LR 1,000 ML IV SCH ×3 (07:14→22:24)
[2019-07-01] MEDS: dextrose ORAL solution 15 GM/59 ML bottle PO PRN ×2 (07:15→21:59)
--- NOTE | 2019-07-01 07:15 | NUR ---
Patient's blood sugar was 55mg/dl, patient is alert, oriented, stated feeling weak. Glucose shot 15gm given to patient as indicated
[2019-07-01 07:40] VITALS: BP 93/50
[2019-07-01 07:45] LABS: PLATELET ESTIMATE NORMAL
[2019-07-01 07:46] LABS: SPHEROCYTES 1+
[2019-07-01] MEDS: K and/or MAG REPLACEMENT MC SCH (08:00)
[2019-07-01] MEDS: lactose-reduced food (Ensure Enlive) - 237ml bottle PO SCH ×3 (08:00→18:46)
--- NOTE | 2019-07-01 08:58 | NUR ---
Received a phone call from Cherelle, a worker at [facility]. She asked if there is a note from Tian Meza, I told her that per hospitalist progress note, Tian DC had seen the patient already and determined that patient is a danger to herself and that currently patient is on 179 status. Cherelle said that she will let the clinician at [facility] know about this and to see the patient today for eval. Charge nurse Tita notified about this.
[2019-07-01] MEDS: ESCITALOPRAM OXALATE 5 MG TABLET PO SCH (09:36)
[2019-07-01] MEDS: heparin, porcine 5000 units/ml vial SQ SCH ×2 (09:37→19:51)
[2019-07-01 11:25] VITALS: BP 98/47
--- NOTE | 2019-07-01 11:50 | NUR ---
Patient visited by her aunbeena Ovalle. Patient gave me verbal permission to talk to her auntie Yamile about her condition. Yamile (auntie) expressed concern about patient going back home because the patient's mom also have the same condition and that the patient is not safe to go back home. Yamile states "I will be willing to take her home with me at [place] if needed!" I discussed this with the patient. I told the patient that her auntie was so worried about her safety at home. Patient states "I am okay with living with her(referring to her aunt Yamile) but I have not decided yet if I am going to live with her or with my grandparents!" Patient stated that her grandparents live in [place]. Charge nurse Tita notified about this. Addendum: 07/01/19 at 1159 by Neelam Faust RN Left a message to Lora, the cooler worker that I made a note about this patient for her to review.
--- NOTE | 2019-07-01 13:28 | NUR ---
[facility] Mental [facility] worker Gracia at the bedside talking to the patient at the moment Addendum: 07/01/19 at 1406 by Neelam Faust RN Gracia ([facility] worker) said that patient suicidal and was aware that patient is unsafe to go back home with her mom. Gracia said she will contact the patient's grandparents Addendum: 07/01/19 at 1407 by Neelam Faust RN Correction to the note: Gracia ([facility] worker) said that patient is NOT suicidal and was aware that patient is unsafe to go back home with her mom. Gracia said she will contact the patient's grandparents
--- NOTE | 2019-07-01 15:50 | NUR ---
Patient in room [facility] 347. I have received report from RASTA Diallo and had the opportunity to ask questions and assume patient care.
--- NOTE | 2019-07-01 15:53 | NUR ---
Report given to Ann RN to take over the care
[2019-07-01 18:00] VITALS: BP 100/62
--- NOTE | 2019-07-01 18:10 | NUR ---
Problems reprioritized. Patient report given, questions answered & plan of care reviewed with RASTA Gonsalez.
--- NOTE | 2019-07-01 18:35 | NUR ---
Patient in room [facility] 347. I have received report from Jayden MAGDALENO and had the opportunity to ask questions and assume patient care. patient is bed resting and shows no sign of distress.
[2019-07-01] MEDS: mirtazapine 15mg tablet PO SCH (20:58)
[2019-07-01] MEDS: amox tr/potassium clavulanate 500mg/125mg TAB PO SCH (20:58)
[2019-07-01] MEDS: Melatonin 3mg tablet PO PRN (21:00)
[2019-07-02 00:54] VITALS: BP 102/46
[2019-07-02] MEDS: potassium 20mEq/D5LR 1,000 ML IV SCH ×3 (05:25→23:00)
--- NOTE | 2019-07-02 06:09 | NUR ---
Problems reprioritized. Patient report given, questions answered & plan of care reviewed with Ophelia RN. Patient slept well with no sign of distress and she denied having pain.
--- NOTE | 2019-07-02 06:32 | NUR ---
Patient in room [facility] 347. I have received report from Sunshine MAGDALENO and had the opportunity to ask questions and assume patient care.
[2019-07-02 07:19] LABS: BASOPHILS # (AUTO) 0.1 X10'3 (0-0.2); BASOPHILS % (AUTO) 1.4 % (0-1); EOSINOPHILS # (AUTO) 0.1 X10'3 (0-0.9); HEMATOCRIT 25.6 % (35.0-45.0); HEMOGLOBIN 9.4 g/dl (12.0-16.0); LYMPHOCYTES # (AUTO) 1.3 X10'3 (1.1-4.8); LYMPHOCYTES % (AUTO) 35.2 % (21-51); MEAN CORPUSCULAR HEMOGLOBIN 33.7 PG (27.0-31.0); MEAN CORPUSCULAR HGB CONC 36.8 g/dL (33.0-36.5); MEAN CORPUSCULAR VOLUME 91.4 FL (78-98); MEAN PLATELET VOLUME 7.3 FL (7.4-10.4); MONOCYTES # (AUTO) 0.3 X10'3 (0-0.9); MONOCYTES % (AUTO) 9.6 % (2-12); NEUTROPHILS # (AUTO) 1.8 X10'3 (1.8-7.7); NEUTROPHILS % (AUTO) 50.8 % (42-75); PLATELET COUNT 186 X10'3 (140-440); RED CELL DISTRIBUTION WIDTH 13.4 % (11.5-14.5); WHITE BLOOD COUNT 3.6 X10'3 (4.5-11.0)
[2019-07-02 07:25] LABS: ALANINE AMINOTRANSFERASE 81 U/L (12-78); ALBUMIN 2.7 G/DL (3.4-5.0); ALBUMIN/GLOBULIN RATIO 1.2 (1.1-1.5); ALKALINE PHOSPHATASE 43 IU/L (20-180); ANION GAP 4 (8-16); ASPARTATE AMINO TRANSFERASE 77 U/L (10-37); BILIRUBIN,TOTAL 0.3 MG/DL (0.1-1.0); BLOOD UREA NITROGEN 2 MG/DL (7-18); CALCIUM 7.9 MG/DL (8.5-10.1); CHLORIDE 110 MMOL/L (99-107); GLUCOSE 78 MG/DL (70-104); MAGNESIUM 1.4 MG/DL (1.5-2.4); PHOSPHORUS 1.8 MG/DL (2.3-4.5); POTASSIUM 4.2 MMOL/L (3.5-5.1); SODIUM 143 MMOL/L (135-145); TOTAL CARBON DIOXIDE 28.7 MMOL/L (24-32); TOTAL PROTEIN 4.9 G/DL (6.4-8.2)
[2019-07-02 07:34] LABS: BUN/CREATININE RATIO 2.7 (6.6-38.0); CREATININE 0.73 MG/DL (0.40-0.90); eGFR > 90 ML/MIN
[2019-07-02 07:38] LABS: PLATELET ESTIMATE NORMAL
[2019-07-02 07:39] LABS: SPHEROCYTES 1+
[2019-07-02 08:00] VITALS: BP 92/41
[2019-07-02] MEDS: K and/or MAG REPLACEMENT MC SCH (08:00)
[2019-07-02] MEDS: amox tr/potassium clavulanate 500mg/125mg TAB PO SCH ×2 (08:15→17:27)
[2019-07-02] MEDS: heparin, porcine 5000 units/ml vial SQ SCH ×2 (08:15→20:40)
[2019-07-02] MEDS: ESCITALOPRAM OXALATE 5 MG TABLET PO SCH (08:15)
[2019-07-02] MEDS: lactose-reduced food (Ensure Enlive) - 237ml bottle PO SCH ×3 (08:15→18:00)
--- NOTE | 2019-07-02 11:28 | NUR ---
Spoke to pt about eating constantly and if she was holding her food down or throwing it up. Pt admitted to have thrown up yesterday but not today. Pt was very embarrassed because she says she cannot help it and food just comes up undigested when she eats it. I asked her to let me know if she vomits and she said she would.
[2019-07-02 11:34] VITALS: BP 100/51
[2019-07-02] MEDS: dextrose ORAL solution 15 GM/59 ML bottle PO PRN ×6 (13:18→20:19)
[2019-07-02] MEDS: dextrose 50%-water 50ml dispensing syringe IV PRN (15:27)
--- NOTE | 2019-07-02 15:30 | NUR ---
Patient's blood sugar keeps dropping. PO dextrose given and patient continues to vomit afterwards. Patient is unable to hold down PO replacement. IV dextrose used to keep blood glucose levels increased. aware.
--- NOTE | 2019-07-02 15:43 | NUR ---
Called Dr Garcia regarding Pt's glucose levels dropping to the 50's-60's. Notified Dr about giving pt IV glucose due to the fact that PT continues to vomit therefore dropping her glucose levels despite the fact that pt has D5K20 running at 125ml per hr. added a D10 drip at 30ml/hr and to reduce D5 to 100/Hr. Pt feels weak and tired no other symptoms reported by pt.
[2019-07-02] MEDS: sodium chloride inj. 154 MEQ in Dextrose 10%-water IV solution 961.5 ML IV SCH (16:18)
--- NOTE | 2019-07-02 17:15 | NUR ---
Pt glucose level at this time was 62, D5K20 & D10 drip infusing at this time. Glucose shot given, 15 min later level increased to 79. Pt will have dinner in 15 min. Pt continuous to eat and vomit, glucose seem to drop every time she vomits . Dr aware of the issue.
--- NOTE | 2019-07-02 18:20 | NUR ---
Problems reprioritized. Patient report given, questions answered & plan of care reviewed with Charline Martinez RN.
[2019-07-02 20:00] VITALS: BP 108/56
--- NOTE | 2019-07-02 20:01 | NUR ---
Patient feeling shaky. BG 49. Gave dex4 x 4. Will recheck in 15 min. Pt also requested 2 orange juices.
[2019-07-02] MEDS: mirtazapine 15mg tablet PO SCH (20:41)
[2019-07-02] MEDS: Melatonin 3mg tablet PO PRN (20:42)
[2019-07-02 23:16] VITALS: BP 92/40
[2019-07-03] VITALS: BP 87/42
[2019-07-03 05:53] LABS: ALANINE AMINOTRANSFERASE 80 U/L (12-78); ALBUMIN 2.8 G/DL (3.4-5.0); ALBUMIN/GLOBULIN RATIO 1.3 (1.1-1.5); ALKALINE PHOSPHATASE 45 IU/L (20-180); ANION GAP 3 (8-16); ASPARTATE AMINO TRANSFERASE 58 U/L (10-37); BILIRUBIN,TOTAL 0.3 MG/DL (0.1-1.0); BLOOD UREA NITROGEN 1 MG/DL (7-18); BUN/CREATININE RATIO 1.3 (6.6-38.0); CALCIUM 8.2 MG/DL (8.5-10.1); CHLORIDE 110 MMOL/L (99-107); GLUCOSE 81 MG/DL (70-104); MAGNESIUM 1.5 MG/DL (1.5-2.4); PHOSPHORUS 2.2 MG/DL (2.3-4.5); POTASSIUM 4.5 MMOL/L (3.5-5.1); SODIUM 142 MMOL/L (135-145); TOTAL CARBON DIOXIDE 29.1 MMOL/L (24-32); eGFR > 90 ML/MIN
[2019-07-03 05:57] LABS: BASOPHILS # (AUTO) 0.1 X10'3 (0-0.2); BASOPHILS % (AUTO) 1.1 % (0-1); EOSINOPHILS # (AUTO) 0.1 X10'3 (0-0.9); EOSINOPHILS % (AUTO) 3.2 % (0-6); HEMATOCRIT 26.5 % (35.0-45.0); HEMOGLOBIN 9.6 g/dl (12.0-16.0); LYMPHOCYTES # (AUTO) 1.6 X10'3 (1.1-4.8); LYMPHOCYTES % (AUTO) 34.3 % (21-51); MEAN CORPUSCULAR HEMOGLOBIN 33.6 PG (27.0-31.0); MEAN CORPUSCULAR HGB CONC 36.2 g/dL (33.0-36.5); MEAN CORPUSCULAR VOLUME 92.7 FL (78-98); MEAN PLATELET VOLUME 7.4 FL (7.4-10.4); MONOCYTES # (AUTO) 0.4 X10'3 (0-0.9); MONOCYTES % (AUTO) 8.4 % (2-12); NEUTROPHILS # (AUTO) 2.4 X10'3 (1.8-7.7); PLATELET COUNT 184 X10'3 (140-440); RED BLOOD COUNT 2.86 X10'6 (4.20-5.60); RED CELL DISTRIBUTION WIDTH 13.7 % (11.5-14.5); WHITE BLOOD COUNT 4.6 X10'3 (4.5-11.0)
[2019-07-03 06:22] LABS: ANISOCYTOSIS 1+; PLATELET ESTIMATE NORMAL; SPHEROCYTES 1+
--- NOTE | 2019-07-03 06:38 | NUR ---
Problems reprioritized. Patient report given, questions answered & plan of care reviewed with RASTA Cisneros.
--- NOTE | 2019-07-03 06:46 | NUR ---
Patient in room [facility] 347. I have received report from Charline Monroe RN and had the opportunity to ask questions and assume patient care.
[2019-07-03 07:05] VITALS: BP 92/47
[2019-07-03] MEDS: K and/or MAG REPLACEMENT MC SCH (08:00)
[2019-07-03] MEDS: lactose-reduced food (Ensure Enlive) - 237ml bottle PO SCH ×3 (08:00→18:39)
[2019-07-03] MEDS: ESCITALOPRAM OXALATE 5 MG TABLET PO SCH (08:04)
[2019-07-03] MEDS: amox tr/potassium clavulanate 500mg/125mg TAB PO SCH ×2 (08:04→17:11)
[2019-07-03] MEDS: heparin, porcine 5000 units/ml vial SQ SCH ×2 (08:05→20:37)
[2019-07-03] MEDS: potassium 20mEq/D5LR 1,000 ML IV SCH ×2 (08:51→18:38)
[2019-07-03 11:43] VITALS: BP 92/46
[2019-07-03] MEDS: dextrose 50%-water 50ml dispensing syringe IV PRN (12:25)
--- NOTE | 2019-07-03 13:16 | NUR ---
Pt Blood sugar 61. consulted with charge nurse due to patient conditions and bulimic behavior. 25 ml of IV glucose given. 15 min recheck BS 131.
--- NOTE | 2019-07-03 13:57 | NUR ---
Reassessment: Pt continues on regular diet with 75-100% PO intake of meals with 50-100% PO intake of Ensure Enlive meeting nutrient needs. Noted that pt refused ONS this morning per med list. Pt purging after meals per physical assessment resulting in hypoglycemia despite pt receiving D5K20 at 100 mL/hr. Pt now also receiving D10/NS at 30 mL/hr as of yesterday to reduce frequency of hypoglycemia. BG range 61-131 today. Pt also with PRN Dextrose replacement. LBM 07/02 documented as small which is to be expected given pt purging after meals. Pt no longer with a sitter per MD notes. Will continue to follow closely. Recommendations: 1) Continue regular diet 2) Vanilla Ensure Enlive TID per MD 3) [place] food preferences 4) Pt would benefit from sitter to monitor purging after PO intake 5) Routine bowel care 6) Wt per rx Addendum: 07/03/19 at [address] Amended: Links added.
--- NOTE | 2019-07-03 15:31 | NUR ---
Herminia Cruz 347B : Step father here requesting to speak to social work manager. thank you
[2019-07-03] MEDS: dextrose ORAL solution 15 GM/59 ML bottle PO PRN ×2 (17:13→21:06)
--- NOTE | 2019-07-03 18:10 | NUR ---
Patient in room [facility]. I have received report from RASTA Rodriguez and had the opportunity to ask questions and assume patient care.
--- NOTE | 2019-07-03 18:34 | NUR ---
Problems reprioritized. Patient report given, questions answered & plan of care reviewed with Charline Monroe RN.
[2019-07-03 18:40] VITALS: BP 86/49
[2019-07-03 19:43] VITALS: BP 98/65
[2019-07-03] MEDS: mirtazapine 15mg tablet PO SCH (20:37)
[2019-07-03] MEDS: Melatonin 3mg tablet PO PRN (21:35)
[2019-07-03 23:49] VITALS: BP 92/38
[2019-07-04] MEDS: sodium chloride inj. 154 MEQ in Dextrose 10%-water IV solution 961.5 ML IV SCH (04:30)
[2019-07-04] MEDS: potassium 20mEq/D5LR 1,000 ML IV SCH ×2 (04:31→15:15)
[2019-07-04 05:36] LABS: BASOPHILS # (AUTO) 0.1 X10'3 (0-0.2); BASOPHILS % (AUTO) 1.2 % (0-1); EOSINOPHILS # (AUTO) 0.2 X10'3 (0-0.9); EOSINOPHILS % (AUTO) 4.4 % (0-6); HEMATOCRIT 26.4 % (35.0-45.0); HEMOGLOBIN 9.5 g/dl (12.0-16.0); LYMPHOCYTES # (AUTO) 1.6 X10'3 (1.1-4.8); LYMPHOCYTES % (AUTO) 36.9 % (21-51); MEAN CORPUSCULAR HEMOGLOBIN 33.1 PG (27.0-31.0); MEAN CORPUSCULAR HGB CONC 35.9 g/dL (33.0-36.5); MEAN CORPUSCULAR VOLUME 92.2 FL (78-98); MEAN PLATELET VOLUME 7.4 FL (7.4-10.4); MONOCYTES # (AUTO) 0.4 X10'3 (0-0.9); MONOCYTES % (AUTO) 10.3 % (2-12); NEUTROPHILS % (AUTO) 47.2 % (42-75); PLATELET COUNT 212 X10'3 (140-440); RED BLOOD COUNT 2.87 X10'6 (4.20-5.60); RED CELL DISTRIBUTION WIDTH 13.8 % (11.5-14.5); WHITE BLOOD COUNT 4.3 X10'3 (4.5-11.0)
[2019-07-04 05:38] LABS: ALANINE AMINOTRANSFERASE 74 U/L (12-78); ALBUMIN 2.9 G/DL (3.4-5.0); ALBUMIN/GLOBULIN RATIO 1.2 (1.1-1.5); ALKALINE PHOSPHATASE 45 IU/L (20-180); ANION GAP 5 (8-16); ASPARTATE AMINO TRANSFERASE 44 U/L (10-37); BILIRUBIN,TOTAL 0.4 MG/DL (0.1-1.0); BLOOD UREA NITROGEN 1 MG/DL (7-18); BUN/CREATININE RATIO 1.3 (6.6-38.0); CALCIUM 8.2 MG/DL (8.5-10.1); CHLORIDE 110 MMOL/L (99-107); GLUCOSE 68 MG/DL (70-104); MAGNESIUM 1.7 MG/DL (1.5-2.4); PHOSPHORUS 2.6 MG/DL (2.3-4.5); POTASSIUM 4.2 MMOL/L (3.5-5.1); SODIUM 143 MMOL/L (135-145); TOTAL CARBON DIOXIDE 28.4 MMOL/L (24-32); TOTAL PROTEIN 5.3 G/DL (6.4-8.2); eGFR > 90 ML/MIN
--- NOTE | 2019-07-04 06:13 | NUR ---
Problems reprioritized. Patient report given, questions answered & plan of care reviewed with RASTA Le.
--- NOTE | 2019-07-04 06:31 | NUR ---
Patient in room [facility] 347. I have received report from Charline Monroe RN and had the opportunity to ask questions and assume patient care.
[2019-07-04 07:00] VITALS: BP 93/46
[2019-07-04] MEDS: dextrose ORAL solution 15 GM/59 ML bottle PO PRN ×7 (07:13→20:55)
[2019-07-04] MEDS: amox tr/potassium clavulanate 500mg/125mg TAB PO SCH ×2 (07:14→17:43)
[2019-07-04] MEDS: ESCITALOPRAM OXALATE 5 MG TABLET PO SCH (07:14)
[2019-07-04] MEDS: heparin, porcine 5000 units/ml vial SQ SCH ×2 (07:16→20:50)
[2019-07-04] MEDS: K and/or MAG REPLACEMENT MC SCH (08:00)
[2019-07-04] MEDS: lactose-reduced food (Ensure Enlive) - 237ml bottle PO SCH ×3 (08:00→18:28)
[2019-07-04 11:00] VITALS: BP 90/45
--- NOTE | 2019-07-04 15:32 | NUR ---
1430 blood sugar 48. 2 bottle of fast acting glucose shot given. Repeated blood sugar 58 after 15min fast acting glucose shot administrated. after 15min Blood sugar 122.
[2019-07-04 18:00] VITALS: BP 97/56
--- NOTE | 2019-07-04 18:20 | NUR ---
Patient in room [facility]. I have received report from RASTA Rodriguez and had the opportunity to ask questions and assume patient care.
--- NOTE | 2019-07-04 18:22 | NUR ---
Problems reprioritized. Patient report given, questions answered & plan of care reviewed with Charline Monroe RN.
[2019-07-04] MEDS: Melatonin 3mg tablet PO PRN (20:50)
[2019-07-04] MEDS: mirtazapine 15mg tablet PO SCH (20:50)
[2019-07-05] VITALS: BP 88/42
[2019-07-05] MEDS: potassium 20mEq/D5LR 1,000 ML IV SCH ×2 (03:05→12:25)
[2019-07-05] MEDS: dextrose ORAL solution 15 GM/59 ML bottle PO PRN ×5 (05:08→14:18)
--- NOTE | 2019-07-05 06:25 | NUR ---
Patient in room [facility] 347. I have received report from Charline Monroe RN and had the opportunity to ask questions and assume patient care.
--- NOTE | 2019-07-05 06:25 | NUR ---
Problems reprioritized. Patient report given, questions answered & plan of care reviewed with RASTA Jacinto.
[2019-07-05] MEDS: ESCITALOPRAM OXALATE 5 MG TABLET PO SCH (07:57)
[2019-07-05] MEDS: amox tr/potassium clavulanate 500mg/125mg TAB PO SCH ×2 (07:57→20:28)
[2019-07-05] MEDS: heparin, porcine 5000 units/ml vial SQ SCH ×2 (07:59→20:28)
[2019-07-05 08:00] VITALS: BP 94/40
[2019-07-05] MEDS: K and/or MAG REPLACEMENT MC SCH (08:00)
[2019-07-05] MEDS: lactose-reduced food (Ensure Enlive) - 237ml bottle PO SCH ×3 (08:15→19:00)
[2019-07-05 11:00] VITALS: BP 95/54
[2019-07-05] MEDS: sodium chloride inj. 154 MEQ in Dextrose 10%-water IV solution 961.5 ML IV SCH (12:26)
--- NOTE | 2019-07-05 14:52 | NUR ---
Spoke to Dr Garcia regarding orders for MRI and blood sugars. Per Dr Garcia she wants us to accu-check patient Q2H and if patients blood sugar is less than 45 we are to call lab for a STAT insulin level and a betahydroxybutrate (see orders) once lab is drawn we can then replace per Protocol for NPO patient D50. verified with Dr Garcia that she does not want patient to have D10 IV fluids she says no because these test are fasting test. Dr Garcia has a call out to Personal Caregiver Dr Madison. Patients step father at bedside and is aware of this. Discussed with patient signs and symptoms of low blood sugar and told her we need to keep her room door open so we can keep a closer eye on her. Patient and stepfather have no further questions. Primary RN aware also notified boat and plant utility supervisor Snow that patient needs to be a 4:1 ratio due to accuchecks. I also notified Maddy polanco/ the lab of the urgency of orders when placed in stat, because we can not treat with D50 until labs are drawn.
--- NOTE | 2019-07-05 17:18 | NUR ---
Reassessment: Pt PO 100% recent meals meeting needs; 0% ONS but PO does fluctuate some. Pt GLU remains low 50's and 60's receiving DEX every 2 hours in addition to IV DEX running per RN; MUMTAZ d/w RN since pt has Glucagon PRN ordered but never given. LBM 07/02. Pt not on any meds causing hypoglycemia. Per most recent MD note; pt to be kept NPO for next 72 hours for testing. Unsure if typo; MUMTAZ d/w RN since now DEX is off in severely malnourished and underweight pt. Per MD note; pt afraid to go home since mother has bulimia. Will continue to follow closely; if to remains NPO would benefit from alternative nutrition given severe malnutrition status. Reassessment: Pt continues on regular diet with 75-100% PO intake of meals with 50-100% PO intake of Ensure Enlive meeting nutrient needs. Noted that pt refused ONS this morning per med list. Pt purging after meals per physical assessment resulting in hypoglycemia despite pt receiving [id number] at 100 mL/hr. Pt now also receiving D10/NS at 30 mL/hr as of yesterday to reduce frequency of hypoglycemia. BG range 61-131 today. Pt also with PRN Dextrose replacement. LBM 07/02 documented as small which is to be expected given pt purging after meals. Pt no longer with a sitter per MD notes. Will continue to follow closely. Recommendations: 1) Continue regular diet 2) Vanilla Ensure Enlive TID per MD 3) [place] food preferences 4) Pt would benefit from sitter to monitor purging after PO intake 5) Routine bowel care 6) Wt per rx 7) IF to remains NPO prolonged consider alternative nutrition per MD approval given severe malnutrition Addendum: 07/05/19 at [address] Amended: Links added.
[2019-07-05 18:00] VITALS: BP 94/48
--- NOTE | 2019-07-05 18:57 | NUR ---
Patient in room [facility]. I have received report from RASTA Jacinto and had the opportunity to ask questions and assume patient care. Addendum: 07/05/19 at 1857 by Martha Bryant RN Amended: Links added.
--- NOTE | 2019-07-05 19:27 | NUR ---
Problems reprioritized. Patient report given, questions answered & plan of care reviewed with Charline MAGDALENO.
[2019-07-05] MEDS: mirtazapine 15mg tablet PO SCH (20:28)
[2019-07-05] MEDS: Melatonin 3mg tablet PO PRN (21:08)
[2019-07-06] VITALS: BP 85/40
--- NOTE | 2019-07-06 06:42 | NUR ---
Problems reprioritized. Patient report given, questions answered & plan of care reviewed with RASTA Jacinto..
[2019-07-06] MEDS: lactose-reduced food (Ensure Enlive) - 237ml bottle PO SCH (07:17)
[2019-07-06 08:00] VITALS: BP 89/44
[2019-07-06] MEDS: K and/or MAG REPLACEMENT MC SCH (08:00)
[2019-07-06] MEDS: heparin, porcine 5000 units/ml vial SQ SCH (08:00)
[2019-07-06] MEDS: amox tr/potassium clavulanate 500mg/125mg TAB PO SCH (08:02)
[2019-07-06] MEDS: ESCITALOPRAM OXALATE 5 MG TABLET PO SCH (08:02)
[2019-07-06 11:00] VITALS: BP 96/50
[2019-07-06] MEDS ORDERED: LEVO500T2 PO (12:29)
--- NOTE | 2019-07-06 14:15 | NUR ---
Pt DC to home with mom and step-dad. 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 Pt and dad was really upset and feels that she is not being helped on her condition. She fears she is going to get worse at home. Dr Garcia expressed her willingness to help but is unable due to her insurance and the way it works. Dad was very sad as well. Pt's belongings were packed and carried out by dad. Pt was wheeled to the front where dad drove her home.
== END 2019-07-06 14:45 | disposition home or self-care (01) | DRG 424 ==
LOC: ER 11:41 → ED HOLD 14:28 → SUR 3N 16:22 → CMPBEDREQ 07-03 21:39
PROVIDERS: ADMIT Family Medicine; ATTEND Family Medicine
DX: E16.2 Hypoglycemia, unspecified (principal); E43 Unspecified severe protein-calorie malnutrition; N17.9 Acute kidney failure, unspecified; F50.2 Bulimia nervosa; E87.6 Hypokalemia; E86.0 Dehydration; B95.5 Unspecified streptococcus as the cause of diseases classified elsewhere; F32.9 Major depressive disorder, single episode, unspecified; N39.0 Urinary tract infection, site not specified; Z83.3 Family history of diabetes mellitus; Z88.8 Allergy status to other drugs, medicaments and biological substances; Z68.1 Body mass index [BMI] 19.9 or less, adult; Z23 Encounter for immunization; Z86.59 Personal history of other mental and behavioral disorders
CPT/HCPCS: 36415; 74183; 80053; 80305; 80320; 81001; 81025; 82948; 83036; 83690; 83735; 84100; 84132; 84443; 84681; 85025; 87040; 87077; 87081; 87088; 87186; 93005; 97112; 97116; 97161; 99285; G0378; J1644; J3480; J7042; J7131; Q0163; Q2037

== ENCOUNTER 2019-08-29 17:01 | Outpatient (CLI) | payer MEDICAID ==
[~2019-08-29 17:01] MED LIST changes: -ESCI5TAB PO; +ESCI5TAB12 PO; +MIRT15TA PO; -MIRT15TA8 PO; -POTA20TA10 PO
[2019-08-29 17:48] LABS: BASOPHILS # (AUTO) 0.1 X10'3 (0-0.2); BASOPHILS % (AUTO) 1.3 % (0-1); EOSINOPHILS % (AUTO) 0.9 % (0-6); HEMATOCRIT 37.3 % (35.0-45.0); HEMOGLOBIN 13.7 g/dl (12.0-16.0); LYMPHOCYTES # (AUTO) 1.7 X10'3 (1.1-4.8); LYMPHOCYTES % (AUTO) 32.1 % (21-51); MEAN CORPUSCULAR HGB CONC 36.7 g/dL (33.0-36.5); MEAN CORPUSCULAR VOLUME 89.8 FL (78-98); MEAN PLATELET VOLUME 7.2 FL (7.4-10.4); MONOCYTES # (AUTO) 0.4 X10'3 (0-0.9); MONOCYTES % (AUTO) 7.4 % (2-12); NEUTROPHILS # (AUTO) 3.1 X10'3 (1.8-7.7); NEUTROPHILS % (AUTO) 58.3 % (42-75); PLATELET COUNT 319 X10'3 (140-440); RED BLOOD COUNT 4.15 X10'6 (4.20-5.60); RED CELL DISTRIBUTION WIDTH 12.6 % (11.5-14.5); WHITE BLOOD COUNT 5.2 X10'3 (4.5-11.0)
[2019-08-29 18:12] LABS: ALBUMIN/GLOBULIN RATIO 1.7 (1.1-1.5); ANION GAP 9 (8-16); ASPARTATE AMINO TRANSFERASE 25 U/L (10-37); BILIRUBIN,TOTAL 0.8 MG/DL (0.1-1.0); BLOOD UREA NITROGEN 15 MG/DL (7-18); BUN/CREATININE RATIO 13.4 (6.6-38.0); CALCIUM 9.4 MG/DL (8.5-10.1); CHLORIDE 98 MMOL/L (99-107); CREATININE 1.12 MG/DL (0.40-0.90); GLUCOSE 85 MG/DL (70-104); MAGNESIUM 2.2 MG/DL (1.5-2.4); PHOSPHORUS 3.9 MG/DL (2.3-4.5); SODIUM 142 MMOL/L (135-145); TOTAL CARBON DIOXIDE 35.4 MMOL/L (24-32); eGFR 62 ML/MIN
[2019-08-29 18:13] LABS: ALANINE AMINOTRANSFERASE 22 U/L (12-78); ALKALINE PHOSPHATASE 58 IU/L (20-180); CHOL/HDL RATIO 2.1 (0.00-4.99); CHOLESTEROL 173 MG/DL (0-200); HDL CHOLESTEROL 82 MG/DL (35-60); LDL CHOLESTEROL 88 MG/DL (50-100); TRIGLYCERIDES 47 MG/DL (20-135)
[2019-08-29 18:16] LABS: PLATELET ESTIMATE NORMAL
[2019-08-29 18:17] LABS: SPHEROCYTES 1+
[2019-08-29 18:39] LABS: POTASSIUM 2.7 MMOL/L (3.5-5.1)
[2019-08-30] MEDS ORDERED: ESZO2TAB31 PO (14:38)
[2019-08-30] MEDS ORDERED: SENN-162 PO (14:38)
[2019-08-31] MEDS ORDERED: POTA10CA44 PO (10:18)
[2019-08-31] MEDS ORDERED: MAGN400C PO (10:18)
== END 2019-08-29 23:59 | disposition home or self-care (01) ==
LOC: LAB 17:01
PROVIDERS: ATTEND Nurse Practitioner Family
DX: E43 Unspecified severe protein-calorie malnutrition (principal); E46 Unspecified protein-calorie malnutrition; F50.02 Anorexia nervosa, binge eating/purging type; G47.00 Insomnia, unspecified
CPT/HCPCS: 36415; 80053; 80061; 82306; 83735; 84100; 84439; 84443; 85025

== ENCOUNTER 2020-01-11 12:42 | Emergency (ER) | payer MEDICAID ==
[~2020-01-11] VITALS: Ht 165.1 cm; Wt 40.0 kg
[~2020-01-11 12:42] MED LIST changes: -ESCI5TAB12 PO; +ESZO2TAB31 PO; +MAGN400C PO; -MIRT15TA PO; +SENN-263 PO
[2020-01-11] MEDS ORDERED: POTASSIUM BICARB 20meq eff tab 20 MEQ TABLET.EFF PO ONE (14:00)
[2020-01-11] MEDS ORDERED: POTASSIUM BICARB 20meq eff tab 20 MEQ TABLET.EFF PO SCH (14:00)
[2020-01-11] MEDS ORDERED: POTA10TA19 PO (14:09)
[2020-01-11 14:26] VITALS: BP 97/56
== END 2020-01-11 14:28 | disposition home or self-care (01) ==
LOC: ER 12:43
DX: E87.6 Hypokalemia (principal); F50.2 Bulimia nervosa; Z88.2 Allergy status to sulfonamides; Z88.8 Allergy status to other drugs, medicaments and biological substances; Z79.899 Other long term (current) drug therapy
CPT/HCPCS: 99283

== ENCOUNTER 2022-10-16 17:34 | Emergency (ER) | payer MEDICAID ==
[~2022-10-16] VITALS: Ht 165.1 cm; Wt 45.0 kg
[~2022-10-16 17:34] MED LIST changes: +POTA-192 PO
[2022-10-16 18:08] LABS: BASOPHILS % (AUTO) 0.4 % (0-1); EOSINOPHILS % (AUTO) 0.2 % (0-6); HEMATOCRIT 36.2 % (35.0-45.0); HEMOGLOBIN 12.9 g/dl (12.0-16.0); LYMPHOCYTES # (AUTO) 1.1 X10'3 (1.1-4.8); LYMPHOCYTES % (AUTO) 8.3 % (21-51); MEAN CORPUSCULAR HEMOGLOBIN 31.6 PG (27.0-31.0); MEAN CORPUSCULAR HGB CONC 35.5 g/dL (33.0-36.5); MEAN PLATELET VOLUME 7.8 FL (7.4-10.4); MONOCYTES % (AUTO) 7.9 % (2-12); NEUTROPHILS # (AUTO) 10.6 X10'3 (1.8-7.7); NEUTROPHILS % (AUTO) 83.2 % (42-75); PLATELET COUNT 267 X10'3 (140-440); RED BLOOD COUNT 4.07 X10'6 (4.20-5.60); RED CELL DISTRIBUTION WIDTH 12.9 % (11.5-14.5); WHITE BLOOD COUNT 12.7 X10'3 (4.5-11.0)
[2022-10-16 18:16] LABS: URINE HCG NEGATIVE (NEG)
[2022-10-16 18:17] LABS: CLARITY,URINE SLIGHTLY CLOUDY (Clear); COLOR,URINE YELLOW (Yellow); GLUCOSE, URINE NEGATIVE (Neg); KETONES,URINE 15 mg/dl (Neg); LEUKOCYTE ESTERASE ,URINE SMALL (Neg); NITRITES, URINE NEGATIVE (Neg); OCCULT BLOOD,URINE SMALL (Neg); PROTEIN,URINE NEGATIVE (Neg); UROBILINOGEN,URINE 0.2 E.U/dL (0.2-1.0)
[2022-10-16 18:23] LABS: ALANINE AMINOTRANSFERASE 15 U/L (12-78); ALBUMIN 4.9 G/DL (3.4-5.0); ALBUMIN/GLOBULIN RATIO 1.4 (1.1-1.5); ALKALINE PHOSPHATASE 73 IU/L (46-116); ANION GAP 11 (8-16); ASPARTATE AMINO TRANSFERASE 23 U/L (10-37); BILIRUBIN,TOTAL 0.6 MG/DL (0.1-1.0); BLOOD UREA NITROGEN 11 MG/DL (7-18); BUN/CREATININE RATIO 11.1 (6.6-38.0); CALCIUM 9.6 MG/DL (8.5-10.1); CHLORIDE 101 MMOL/L (99-107); CREATININE 0.99 MG/DL (0.40-0.90); GLUCOSE 92 MG/DL (70-104); LIPASE 105 U/L (73-393); POTASSIUM 3.1 MMOL/L (3.5-5.1); SODIUM 141 MMOL/L (135-145); TOTAL CARBON DIOXIDE 29.4 MMOL/L (24-32); TOTAL PROTEIN 8.3 G/DL (6.4-8.2); eGFR 70 ML/MIN
[2022-10-16 18:24] LABS: UA COLLECTION TYPE CLN CATCH MIDSTREAM
[2022-10-16 18:27] LABS: BACTERIA,URINE FEW /HPF (Neg); MUCUS STRANDS FEW /LPF (Neg); SQUAMOUS EPITHELIAL CELL,UR FEW /LPF (FEW); TRANSITIONAL EPI CELLS,URINE FEW /HPF
[2022-10-16] MEDS ORDERED: POTASSIUM BICARB 20meq eff tab 20 MEQ TABLET.EFF PO STA (21:58)
[2022-10-16] MEDS ORDERED: ibuprofen 200mg tablet PO ONE (22:00)
[2022-10-16] MEDS ORDERED: ciprofloxacin 250mg tablet PO ONE (22:00)
[2022-10-16] MEDS ORDERED: CIPR-259 PO (22:09)
[2022-10-16 22:18] VITALS: BP 101/56
== END 2022-10-16 22:26 | disposition home or self-care (01) ==
LOC: ER 17:34
DX: N10 Acute pyelonephritis (principal); Z88.2 Allergy status to sulfonamides
CPT/HCPCS: 36415; 80053; 81001; 81025; 83605; 83690; 84145; 85025; 87088; 99284

== ENCOUNTER 2022-11-10 14:31 | Emergency (ER) | payer MEDICAID ==
[~2022-11-10] VITALS: Ht 165.1 cm; Wt 52.3 kg
[2022-11-10 16:46] VITALS: BP 92/58
[2022-11-10 17:29] LABS: CLARITY,URINE CLOUDY (Clear); COLOR,URINE YELLOW (Yellow); GLUCOSE, URINE NEGATIVE (Neg); KETONES,URINE NEGATIVE (Neg); LEUKOCYTE ESTERASE ,URINE TRACE (Neg); NITRITES, URINE NEGATIVE (Neg); OCCULT BLOOD,URINE NEGATIVE (Neg); PROTEIN,URINE TRACE mg/dl (Neg); URINE HCG NEGATIVE (NEG); UROBILINOGEN,URINE 0.2 E.U/dL (0.2-1.0)
[2022-11-10 17:34] LABS: UA COLLECTION TYPE CLN CATCH MIDSTREAM
[2022-11-10 17:38] LABS: BACTERIA,URINE 1+ /HPF (Neg); RBC,URINE NONE SEEN /HPF (0-2)
[2022-11-10 17:39] LABS: SQUAMOUS EPITHELIAL CELL,UR NONE SEEN /LPF (FEW); TRANSITIONAL EPI CELLS,URINE FEW /HPF
[2022-11-10 17:40] LABS: AMORPHOUS PHOSPHATES 4+
[2022-11-10 18:04] LABS: BASOPHILS # (AUTO) 0.1 X10'3 (0-0.2); BASOPHILS % (AUTO) 1.2 % (0-1); EOSINOPHILS # (AUTO) 0.1 X10'3 (0-0.9); HEMATOCRIT 36.9 % (35.0-45.0); LYMPHOCYTES # (AUTO) 1.7 X10'3 (1.1-4.8); LYMPHOCYTES % (AUTO) 28.3 % (21-51); MEAN CORPUSCULAR HEMOGLOBIN 31.7 PG (27.0-31.0); MEAN CORPUSCULAR HGB CONC 35.3 g/dL (33.0-36.5); MEAN CORPUSCULAR VOLUME 89.8 FL (78-98); MONOCYTES # (AUTO) 0.7 X10'3 (0-0.9); MONOCYTES % (AUTO) 11.8 % (2-12); NEUTROPHILS # (AUTO) 3.4 X10'3 (1.8-7.7); NEUTROPHILS % (AUTO) 57.7 % (42-75); PLATELET COUNT 290 X10'3 (140-440); RED BLOOD COUNT 4.11 X10'6 (4.20-5.60); RED CELL DISTRIBUTION WIDTH 13.2 % (11.5-14.5); WHITE BLOOD COUNT 5.8 X10'3 (4.5-11.0)
[2022-11-10 18:16] LABS: ALANINE AMINOTRANSFERASE 14 U/L (12-78); ALBUMIN 4.5 G/DL (3.4-5.0); ALBUMIN/GLOBULIN RATIO 1.3 (1.1-1.5); ALKALINE PHOSPHATASE 66 IU/L (46-116); ANION GAP 7 (8-16); ASPARTATE AMINO TRANSFERASE 23 U/L (10-37); BILIRUBIN,TOTAL 0.6 MG/DL (0.1-1.0); BLOOD UREA NITROGEN 13 MG/DL (7-18); BUN/CREATININE RATIO 14.1 (10.0-20.0); CALCIUM 9.9 MG/DL (8.5-10.1); CHLORIDE 102 MMOL/L (99-107); CREATININE 0.92 MG/DL (0.40-0.90); GLUCOSE 83 MG/DL (70-104); MAGNESIUM 2.3 MG/DL (1.5-2.4); POTASSIUM 3.4 MMOL/L (3.5-5.1); SODIUM 142 MMOL/L (135-145); TOTAL PROTEIN 7.9 G/DL (6.4-8.2); eGFR 76 ML/MIN
[2022-11-10] MEDS ORDERED: POTASSIUM BICARB 20meq eff tab 20 MEQ TABLET.EFF PO STA (18:18)
[2022-11-10] MEDS ORDERED: amox tr/potassium clavulanate 875/125mg TAB PO ONE (18:20)
[2022-11-10] MEDS ORDERED: AMOX-117 PO (18:22)
[2022-11-10 18:24] LABS: LIPASE 110 U/L (73-393)
== END 2022-11-10 19:53 | disposition home or self-care (01) ==
LOC: ER 14:32
DX: N10 Acute pyelonephritis (principal); E87.6 Hypokalemia; Z88.2 Allergy status to sulfonamides
CPT/HCPCS: 36415; 80053; 81001; 81025; 83690; 83735; 85025; 87088; 93005; 99284